=== PATIENT | female | born 2005 | race Two or more races ===

== ENCOUNTER 2025-02-18 11:20 | Emergency (ER) | payer OTHER ==
[~2025-02-18] VITALS: Ht 175.3 cm; Wt 66.2 kg
[2025-02-18 12:37] VITALS: BP 177/93; O2SAT 97
[2025-02-18 14:11] LABS: COVID-19 AG NEGATIVE (NEGATIVE)
[2025-02-18 14:18] LABS: INFLUENZA A AG NEGATIVE (NEGATIVE)
== END 2025-02-18 12:40 | disposition home or self-care (01) ==
LOC: ER 11:21
PROVIDERS: General Practice
DX: J06.9 Acute upper respiratory infection, unspecified (principal); Z20.822 Contact with and (suspected) exposure to COVID-19